=== PATIENT | female | born 1970 | race Caucasian/White ===

== ENCOUNTER → 2017-03-05 | Outpatient (CLI) | payer SELFPAY ==
--- NOTE | 2017-03-05 13:47 | CT ---
HISTORY: Left-sided chest pain and dyspnea Cardiac calcium scoring. Technique: Multiple axial images of the chest were obtained on a [address] from the aortic arch to the base of the heart with noncontrast prospective gating.AEC was utilized. Findings: A total calcium score of 0 is observed. The score results in very low, less than 5%, likelihood of c oronary events given the age and sex matched cohort analysis. There is left basilar scar versus subsegmental atelectasis. Surrounding soft tissues and osseous str uctures are otherwise unremarkable. IMPRESSION: Coronary calcium score of 0. Reported By:
== END ==
LOC: RAD 09:15
PROVIDERS: ATTEND Family Medicine
DX: Z13.6 Encounter for screening for cardiovascular disorders (principal)